=== PATIENT | female | born 1960 | race Caucasian/White ===

== ENCOUNTER 2017-12-30 17:54 | Emergency (ER) | payer OTHER ==
[~2017-12-30] VITALS: Ht 149.9 cm; Wt 81.8 kg
[2017-12-30] MEDS ORDERED: PENICILLIN V POTASSIUM 250 MG/5 ML SUSP ORAL.SYG PO ONE (19:30)
[2017-12-30] MEDS ORDERED: LIDOCAINE HCL 1% 10 ML VIAL INJ ONE (19:30)
[2017-12-30 20:05] VITALS: BP 144/89
== END 2017-12-30 20:09 | disposition home or self-care (01) ==
LOC: EMS 17:56
DX: K02.9 Dental caries, unspecified (principal); F17.210 Nicotine dependence, cigarettes, uncomplicated; I10 Essential (primary) hypertension
CPT/HCPCS: 64400; 99284; J3490